=== PATIENT | female | born 1980 | race Caucasian/White ===

== ENCOUNTER 2016-06-29 13:34 | Emergency (ER) | payer OTHER ==
[~2016-06-29] VITALS: Ht 157.5 cm; Wt 60.0 kg
[~2016-06-29 13:34] MED LIST: SERT100 PO; SUBO8MIS SL; VARE.5 PO
[2016-06-29 13:37] VITALS: BP 124/68; PULSE 16; TEMP 98.5; O2SAT 98
[2016-06-29 13:38] VITALS: BP 124/68; PULSE 88; RESP 16; TEMP 98.5; O2SAT 98
--- NOTE | 2016-06-29 13:58 | PD ---
Physical Exam Time Seen by Provider: 13:51 Narrative 36 year old female who states she found out she was two weeks ago presents to the ED for evaluation of intermittent abdominal pains, sharp stabbing, some times lower and sometimes higher. No fever or chills. Urinary frequency. No vaginal discharge or bleeding. Pt has history of bipolar disorder , anxiety, and is on suboxone. Has not yet seen an MANAGER REVENUE. No other symptoms to report. Data Data Last Documented VS Vital Signs Date Time Temp Pulse Resp B/P Pulse Ox O2 Delivery O2 Flow Rate FiO2 06/29/16 13:38 98.5 88 16 124/68 98 MDM Medical Record Reviewed: Yes Supervised Visit with LOIDA: No Narrative Course 36 year old female presents to ED for evaluation of abdominal pains, intermittent and states she found out she was 2 weeks ago. Appears without distress. VSS Condition: Stable Rachael Sanchez Jun 29, 2016 13:58
[2016-06-29] MEDS ORDERED: SUBO8MIS SL (14:23)
--- NOTE | 2016-06-29 14:40 | PD ---
HPI Chief Complaint: Related Problem Time Seen by Provider: 14:24 Travel History International Travel<30 days: No Contact w/Intl Traveler<30days: No Traveled to known affect area: No History of Present Illness HPI This is a 36-year-old female who presents to the emergency department just having found out she was . She says she's been having intermittent abdominal cramping, mild, nonradiating, with no associated vaginal bleeding, vaginal discharge, diarrhea, constipation or vomiting. She does have a history of colitis but doesn't think that is what is going on. She did have an episode of dysuria. PFSH Past Medical History Hx Anticoagulant Therapy: No Bipolar Disorder: Yes Depression: Yes Cardiovascular Problems: No Chemotherapy: No Cerebrovascular Accident: No Diabetes: No Diminished Hearing: No Hepatitis: Yes (c) Psychiatric: Yes Respiratory: No Immunizations Current: Yes Tetanus Vaccination: Unknown Influenza Vaccination: No ?: LMP: 04/14/16 : 4 Para: 2 Miscarriage: 1 Past Surgical History Surgical History: No Previous Surgery Hysterectomy: No Social History Alcohol Use: No Tobacco Use: Yes (1 ppd) Substance Use: Yes (marijuana) Allergies-Medications (Allergen,Severity, Reaction): Coded Allergies: No Known Allergies (Verified , 06/29/16) Reported Meds & Prescriptions Reported Meds & Active Scripts Active Reported Suboxone Sublingual Film (Buprenorphine-Naloxone Sublingual Film) 8-2 Mg Film 1 Film SL Unique ID number required: Review of Systems Except as stated in HPI: all other systems reviewed are Neg Physical Exam Narrative GENERAL:Well appearing, no acute distress SKIN: Focused skin assessment warm and dry. HEAD: Atraumatic. Normocephalic. EYES: Pupils equal and round. No injection or drainage. ENT: Moist mucous membranes NECK: Trachea midline. CARDIOVASCULAR: Regular rate and rhythm. No murmur appreciated. RESPIRATORY: Clear to auscultation. Breath sounds equal bilaterally. GASTROINTESTINAL: Abdomen soft, non-tender, nondistended. MUSCULOSKELETAL: No obvious deformities. NEUROLOGICAL: Awake and alert. No obvious cranial nerve deficits. Moving All extremities. PSYCHIATRIC: Appropriate mood and affect; insight and judgment normal. Data Data Last Documented VS Vital Signs Date Time Temp Pulse Resp B/P Pulse Ox O2 Delivery O2 Flow Rate FiO2 06/29/16 13:38 98.5 88 16 124/68 98 Orders Urinalysis - C+S If Indicated (06/29/16 14:21) Ed Urine Pregnancytest Poc (06/29/16 14:21) Ed Poc Ultrasound (06/29/16 ) Urine Culture (06/29/16 14:26) Labs Laboratory Tests Test 06/29/16 14:26 Urine Color YELLOW Urine Turbidity HAZY Urine pH 6.5 Urine Specific [place] 1.019 Urine Protein NEG mg/dL Urine Glucose (UA) NEG mg/dL Urine Ketones NEG mg/dL Urine Occult Blood NEG Urine Nitrite NEG Urine Bilirubin NEG Urine Urobilinogen LESS THAN 2.0 MG/DL Urine Leukocyte Esterase LARGE Urine RBC 6 /hpf Urine WBC 22 /hpf Urine Squamous Epithelial 6 /hpf Cells Urine Bacteria FEW /hpf Urine Mucus FEW /lpf Microscopic Urinalysis Comment CULTURE INDICATED MDM Medical Decision Making Medical Screen Exam Complete: Yes Emergency Medical Condition: Yes Interpretation(s) Afebrile, no tachycardia, normotensive Differential Diagnosis Ectopic , intrauterine , urinary tract infection, colitis Narrative Course This is a 36-year-old female who presents to the emergency department with lower abdominal discomfort in the setting of early . Bedside ultrasound demonstrates an intrauterine with a heart rate of 142 with movement. I was unable to save the images on ultrasound. Urinalysis demonstrates infection. I think patient can safely be discharged and follow-up with [facility]. I suspect her pain is normal in the setting of early . Diagnosis Primary Impression: Intrauterine Patient Instructions: General Instructions Additional Instructions: If you develop severe abdominal pain, fever, persistent vomiting or inability to eat, heavy vaginal bleeding using more than one pad an hour, lightheadedness , dizziness, chest pain or shortness of breath return to the emergency department immediately. Followup with your program paraprofessional as soon as possible. Take Tylenol as needed for pain. Med/Other Pt SpecificInfo: No Change to Meds Scripts Nitrofurantoin Monohydrate Macrocrystals (Macrobid)100 Mg [id number] Mg PO BID 7 Days Ref 0 Prov:Jemma Vines MD 06/29/16 Disposition: 01 DISCHARGE HOME Condition: Stable Jemma Vines MD Jun 29, 2016 14:40
[2016-06-29 14:46] LABS: BACTERIA, URINE FEW /hpf; BLOOD, URINE NEG (NEG); GLUCOSE,URINE NEG (NEG); KETONE, URINE NEG (NEG); MUCUS URINE FEW /lpf (OCC); NITRITE,URINE NEG (NEG); PH, URINE 6.5 (5.0-8.5); SQUAMOUS EPITHELIAL CELL URINE 6 /hpf (0-5); URINE COLOR YELLOW (YELLW/STRAW)
[2016-06-29 14:47] LABS: COMMENT (UR) CULTURE INDICATED; CULTURE IF INDICATED CULTURE INDICATED
[2016-06-29] MEDS ORDERED: MACR100C2 PO (15:00)
[2016-07-28] MEDS ORDERED: ZOLO50TA PO (13:56)
[2016-08-31] MEDS ORDERED: ZOLO50TA PO (13:54)
== END 2016-06-29 15:45 | disposition home or self-care (01) ==
LOC: NEPD 13:34
DX: O26.891 Other specified pregnancy related conditions, first trimester (principal); R30.0 Dysuria; O09.521 Supervision of elderly multigravida, first trimester; Z3A.00 Weeks of gestation of pregnancy not specified
CPT/HCPCS: 81001; 84703; 87086; 99284

== ENCOUNTER → 2016-09-07 | Emergency (ER) | payer OTHER ==
[~2016-09-07] MED LIST changes: -SERT100 PO; -VARE.5 PO; +ZOLO50TA PO
[2016-09-07 13:46] VITALS: BP 117/61; PULSE 76; RESP 12; RESP 16
--- NOTE | 2016-09-07 13:46 | PD ---
HPI Chief Complaint swelling of the legs Date Seen: Sep 07, 2016 Time Seen: 13:46 Travel History International Travel<30 Days: No Contact w/Intl Traveler<30Days: No History of Present Illness HPI Patient is a 36 year old at 20 and 5/7 weeks gestation, TRINA 01/20/2017, who presents to the OB ED with swelling of the legs, arms and face intermittently x 1 month. She has a history of bipolar disorder, hepatitis C diagnosed in 2007, and colitis (resolved 2 years ago). She endorses chronic migraines. She notes she has taken ibuprofen during this but not in the last month. She denies leakage of fluid, vaginal bleeding, and contractions. She feels baby moving regularly. She denies PALACIOS/N/V/D/fever/sick contacts/SOB/calf pain/ dizziness/seeing spots. OB care is with Dr. Land ([facility]). History Past Medical History Narrative Medical Hepatitis C diagnosed 2007 Colitis 2 years ago Bipolar disorder Obstetric History Obstetric History 2 normal spontaneous vaginal deliveries of 8+ pounds boy and girl age 11 and 14 One spontaneous One elective Family History Family History: Negative Social History Alcohol Use: No Tobacco Use: Yes (1 pack per day) Substance Abuse: Yes (Suboxone 16/4 mg daily) Allergies-Medications (Allergen,Severity, Reaction): Coded Allergies: No Known Allergies (Verified , 08/31/16) Home Meds Active Scripts Sertraline (Zoloft)50 Mg Tab50 Mg PO DAILY #90 TAB Ref 0 Prov:Chava Land MD 08/31/16 Reported Medications Buprenorphine-Naloxone Sublingual Film (Suboxone Sublingual Film)8-2 Mg Film1 Film SL Unique ID number required: 06/29/16 Discontinued Scripts Sertraline (Zoloft)50 Mg Tab50 Mg PO DAILY #90 TAB Ref 0 Prov:Chava Land MD 07/28/16 Review of Systems Except as stated in HPI: all other systems reviewed are Neg Physical Exam Narrative GENERAL: Well-nourished, well-developed female patient who appears anxious. SKIN: Warm and dry. [facility] HEAD: Normocephalic and atraumatic. EYES: No scleral icterus. No injection or drainage. ENT: No nasal drainage noted. Mucous membranes pink. Airway patent. NECK: Supple, trachea midline. No JVD. CARDIOVASCULAR: Regular rate and rhythm without murmurs, gallops, or rubs. RESPIRATORY: Breath sounds equal bilaterally. No accessory muscle use. BREASTS: Bilateral exam showed no masses , no retractions, no nipple discharge. ABDOMEN/GI: Abdomen soft, non-tender, bowel sounds present, no rebound, no guarding . She is gravid to approximately 19 weeks size GENITOURINARY: Deferred FHR: 135 EXTREMITIES: No cyanosis or edema. No lower extremity edema noted on exam. 2+ pulses in the extremities bilaterally. She has no calf tenderness and negative Homans sign BACK: Nontender without obvious deformity. No CVA tenderness. NEUROLOGICAL: Awake and alert. Motor and sensory grossly within normal limits. Five out of 5 muscle strength in all muscle groups. Normal speech. Data Data Vital Signs Reviewed: Yes (BP 114/71, pulse 94, repeat BP 117/51, pulse 76, respirations 16/m, temp 98.3F) Orders Vital Signs (Adult) .ON ADMISSION (09/07/16 13:44) ^ Labor Status (09/07/16 13:44) ^ Hydration (09/07/16 13:44) MDM Medical Record Reviewed: Yes Narrative Course / MDM 36 year old at 20 and 5/7 weeks gestation, TRINA 01/20/2017, with a history of bipolar disorder, hepatitis C, and colitis, who presents to the OB ED with swelling of the legs, arms, and face which has resolved. Intrauterine : Normal FHR for week gestation No contractions on monitor Care for women care Routine care Given handouts on healthy diet given salt intake likely contributing to reported edema MFM consult the given history of drug use. Patient counseled her most recent appointment. She was walked to OB diagnostics for rescheduling Suboxone Use Complicating Reports over 4 years of use MFM consulted per [facility] Tobacco Use Complicating Counseled on tobacco cessation Chronic Hepatitis C Noted, patient to be monitored closely. No symptoms at this time Diagnosis Diagnosis: Primary Impression: Intrauterine normal Additional Impressions: Suboxone maintenance treatment complicating , antepartum Chronic hepatitis C during , antepartum Disposition: 01 DISCHARGE HOME Condition: Stable Carolina Cintron MD R1 Sep 07, 2016 13:46 Patient would like to have vaginal after . Nothing by mouth She had a consult for this on 10/05; risks and benefits were discussed and are in the EMR Epidural available No Pitocin Patient was informed that if the strip is not reassuring, or if she develops symptoms suggesting severe preeclampsia, or other unforeseen difficulties, it may be necessary to proceed with a delivery Patient understands and agrees. All questions were answered. BILLIE Sanches [] Date Seen: Sep 07, 2016 Time Seen: 13:46 Travel History International Travel<30 Days: No Contact w/Intl Traveler<30Days: No Allergies-Medications (Allergen,Severity, Reaction): Coded Allergies: No Known Allergies (Verified , 08/31/16) Home Meds Active Scripts Sertraline (Zoloft)50 Mg Tab50 Mg PO DAILY #90 TAB Ref 0 Prov:Chava Land MD 08/31/16 Reported Medications Buprenorphine-Naloxone Sublingual Film (Suboxone Sublingual Film)8-2 Mg Film1 Film SL Unique ID number required: 06/29/16 Discontinued Scripts Sertraline (Zoloft)50 Mg Tab50 Mg PO DAILY #90 TAB Ref 0 Prov:Chava Land MD 07/28/16 Physical Exam Narrative GENERAL: Well-nourished, well-developed patient. SKIN: Warm and dry. HEAD: Normocephalic and atraumatic. EYES: No scleral icterus. No injection or drainage. ENT: No nasal drainage noted. Mucous membranes pink. Airway patent. NECK: Supple, trachea midline. No JVD. CARDIOVASCULAR: Regular rate and rhythm without murmurs, gallops, or rubs. RESPIRATORY: Breath sounds equal bilaterally. No accessory muscle use. BREASTS: Bilateral exam showed no masses , no retractions, no nipple discharge. ABDOMEN/GI: Abdomen soft, non-tender, bowel sounds present, no rebound, no guarding Gravid to [-] weeks size Fundal Height: [-] GENITOURINARY: External Genitalia: intact and normal in appearance BUS glands: [-] Cervix: [-] Dilatation: [-] Effacement: [-] Station: [-] Presentation: [-] Membranes: [intact or ruptured] Uterine Contractions: [-] FHT's: Category: [-] Baseline: [-] Reactive: [-] Variability: [-] Decels: [-] EXTREMITIES: No cyanosis or edema. BACK: Nontender without obvious deformity. No CVA tenderness. NEUROLOGICAL: Awake and alert. Motor and sensory grossly within normal limits. Five out of 5 muscle strength in all muscle groups. Normal speech. Data Data Orders Vital Signs (Adult) .ON ADMISSION (09/07/16 13:44) ^ Labor Status (09/07/16 13:44) ^ Hydration (09/07/16 13:44) Carolina Cintron MD R1 Sep 07, 2016 13:46
[2016-09-07 14:13] LABS: BACTERIA, URINE OCC /hpf; BLOOD, URINE NEG (NEG); COMMENT (UR) CULT NOT INDICATED; CULTURE IF INDICATED CULT NOT INDICATED; GLUCOSE,URINE NEG (NEG); KETONE, URINE NEG (NEG); NITRITE,URINE NEG (NEG); PH, URINE 7.5 (5.0-8.5); SQUAMOUS EPITHELIAL CELL URINE 2 /hpf (0-5); URINE COLOR YELLOW (YELLW/STRAW)
== END | disposition home or self-care (01) ==
LOC: HOBED 12:35
DX: O26.892 Other specified pregnancy related conditions, second trimester (principal); O99.322 Drug use complicating pregnancy, second trimester; O99.332 Smoking (tobacco) complicating pregnancy, second trimester; O99.830 Other infection carrier state complicating pregnancy; O99.342 Other mental disorders complicating pregnancy, second trimester; Z3A.20 20 weeks gestation of pregnancy
CPT/HCPCS: 81001; 99281

== ENCOUNTER 2016-12-29 14:31 | Inpatient (IN) | payer OTHER ==
[2016-12-29] VITALS (12 sets, daily range): BP systolic 101–126; BP diastolic 51–84; PULSE 75–86; RESP 12–22; TEMP 97.7–98.3; O2SAT 97–100
[~2016-12-29] VITALS: Ht 157.5 cm; Wt 69.4 kg
[~2016-12-29 14:31] MED LIST changes: +CALC1CHW35 CHEW; +LACTATED RINGER'S 1000 ML INJ 1,000 ML IV ONE; +ONDANSETRON HCL 4 MG/2 ML VIAL IV PUSH ONE; +OXYTOCIN 10 UNIT/ML AMP IV ONE; +PHENYLEPH/NS 1000 MCG/10 ML SYR IV ONE; +PREN1CAP7 PO; +PREN1TAB63; +PROPOFOL 200 MG/20 ML AMP IV ONE; +SODIUM CHLORIDE 0.9% 20 ML VIAL IV ONE; +SUCCINYLCHOLINE CHLORIDE 100 MG/5 ML SYRINGE IV PUSH ONE; +ceFAZolin INJ 1,000 MG VIAL IV ONE
--- NOTE | 2016-12-29 16:03 | PD ---
HPI Chief Complaint Contractions Date Seen: Dec 29, 2016 Time Seen: 15:30 Travel History International Travel<30 Days: No Contact w/Intl Traveler<30Days: No History of Present Illness HPI 36-year-old at 36/6 weeks gestation presenting for contractions. Started at 8 AM as a constant pressure, high in intensity, localized to the lower pelvis and back. Pain is been constant, not intermittent. Twice she had sharp flares of the pain, once at 12:30 and again at 1345. She denies vaginal bleeding , leakage of fluid. Endorses movement. Denies chest pain, shortness of breath, dysuria. History Past Medical History Medical History: Denies Significant Hx Obstetric History Obstetric History Past Surgical History Surgical History: No Previous Surgery Family History Family History: Negative Social History Alcohol Use: No Tobacco Use: Yes (1 PPD throughout ) Substance Abuse: Yes (h/o opiate use, currently on suboxone) Allergies-Medications (Allergen,Severity, Reaction): Coded Allergies: No Known Allergies (Verified , 12/23/16) Home Meds Active Scripts W/O Vit A W/ Fe Fumar (Citranatal [place]) 27-1-260 Mg Cap, 1 CAP PO DAILY for Nutritional Supplement, #30 CAP 3 Refills Prov:Chava Land MD 12/23/16 Sertraline (Zoloft) 50 Mg Tab, 50 MG PO DAILY for Depression Control, #90 TAB 0 Refills Prov:Chava Land MD 08/31/16 Reported Medications Calcium Carbonate-Mag Hydroxide (Rolaids) 550-110 Mg Chew, 2 TAB CHEW QID Y for HEARTBURN, TAB 0 Refills 11/09/16 Multivit-Min W/Fe-FA ( Vitamins 0.8 mg) 1 Tab Tab 10/12/16 Buprenorphine-Naloxone Sublingual Film (Suboxone Sublingual Film) 8-2 Mg Film, 1 FILM SL, FILM Unique ID number required: 06/29/16 Review of Systems Except as stated in HPI: all other systems reviewed are Neg Physical Exam Narrative GENERAL: Well-nourished, well-developed patient. SKIN: Warm and dry. HEAD: Normocephalic and atraumatic. EYES: No scleral icterus. No injection or drainage. ENT: No nasal drainage noted. Mucous membranes pink. Airway patent. CARDIOVASCULAR: Regular rate and rhythm without murmurs, gallops, or rubs. RESPIRATORY: Breath sounds equal bilaterally. No accessory muscle use. ABDOMEN/GI: Abdomen soft, non-tender, no rebound, no guarding GENITOURINARY: Cervix: posterior Dilation: 1 cm Effacement: 70% Presentation: Vertex Membranes: Intact Contractions: Every 1 min FHT's: Category: 1 Baseline: 130 Reactive: Y Variability: moderate Decels: N EXTREMITIES: No cyanosis or edema. NEUROLOGICAL: Awake and alert. Motor and sensory grossly within normal limits. Normal speech. Data Data Vital Signs Reviewed: Yes Group B Strep: Negative MDM Medical Record Reviewed: Yes Narrative Course / MDM 36-year-old at 36/6 weeks gestation presenting with contractions #1 IUP Category 1 tracing, reassuring #2 contractions Cervix effaced, but not dilated. However, patient extremely uncomfortable Encouraged hydration Pain subsiding spontaneously. Give Demerol 50 mg IM x1, Phenergan 25 mg IM x1 Since she's feeling better, patient elected to go home after demerol/phenergan and wait to see if contractions become true labor. Counselled on labor signs and when to come into ER. #3 Tobacco use Advised smoking cessation #4 H/o opiate use on suboxone no record found of UDS this UDS ordered dw Dr. Powers Diagnosis Diagnosis: Primary Impression: Uterine contractions during Disposition: 01 DISCHARGE HOME Condition: Good Altaf Chapman MD R2 Dec 29, 2016 16:03
[2016-12-29] MEDS ORDERED: PROMETHAZINE INJ 25 MG/ML VIAL IM ONE (17:00)
[2016-12-29] MEDS ORDERED: MEPERIDINE HCL 50 MG/ML VIAL IM ONE (17:00)
--- NOTE | 2016-12-29 17:51 | PD.LABORPN ---
Subjective Subjective Patient is 36-year-old white female at 37 weeks tomorrow presents with pain and frequent contractions, heart rate tracing is reactive and she is chad every minute with very little rest between uterus staying firm, she denies bleeding or leakage of fluid. Plan to discharge the patient because her cervix is 1 cm and 70% however before she was discharged her urine drug screen came back positive for cocaine. And because the cocaine screen was positive for felt the risk for placental abruption significant the contraction pattern I' m seeing now with heart rate tracing is reactive and there is no bleeding after assessment and discussion with the patient and we were frankly discussing cocaine and its ability to possible small abruption and the Baby that we should at least watch her overnight and see if she's going to progress into labor or show signs of abruption. We'll check a CBC CMP PT/PTT if fibrinogen observe the patient as described Objective Vital Signs Vital Signs Date Time Temp Pulse Resp B/P (MAP) Pulse Ox O2 Delivery O2 Flow Rate FiO2 12/29/16 17:33 18 12/29/16 17:32 81 119/84 (96) Objective Pelvic Exam: Cervix: [-] Dilatation: [-] Effacement: [-] Station: [-] Presentation: [-] Membranes: [intact or ruptured] Uterine Contractions: [-] FHT's: Category: [-] Baseline: [-] Reactive: [-] Variability: [-] Decels: [-] Weeks Gestation: 37 Gest Age Assessed Date: Dec 30, 2016 Gest Age Assessed Time: 14:31 Pt started active labor?: No Medical induction of labor?: No Artificial rupture of membrane: No Assessment/Plan Assessment and Plan 36-37 weeks with threatened labor with contractions every minute after having a positive cocaine screen today. Plan to admit for observation for threatened labor drug use and possible increased risk for placental abruption due to cocaine use Tony Powers II, MD Dec 29, 2016 17:51
--- NOTE | 2016-12-29 17:59 | HHI.HP ---
History & Physical H&P Patient Name: Arlyn Yu Unit Number: [id number] Date of : 1980 Patient Status: Registered Emergency Room Attending Doctor: Tony Powers II, MD HPI HPI Chief Complaint Contractions Date Seen: Dec 29, 2016 Time Seen: 15:30 Travel History International Travel<30 Days: No Contact w/Intl Traveler<30Days: No History of Present Illness HPI 36-year-old at 36/6 weeks gestation presenting for contractions. Started at 8 AM as a constant pressure, high in intensity, localized to the lower pelvis and back. Pain is been constant, not intermittent. Twice she had sharp flares of the pain, once at 12:30 and again at 1345. She denies vaginal bleeding , leakage of fluid. Endorses movement. Denies chest pain, shortness of breath, dysuria. History (Limited) History Past Medical History Medical History: Denies Significant Hx Obstetric History Obstetric History Past Surgical History Surgical History: No Previous Surgery Family History Family History: Negative Social History Alcohol Use: No Tobacco Use: Yes (1 PPD throughout ) Substance Abuse: Yes (h/o opiate use, currently on suboxone) Allergies-Medications Allergies-Medications (Allergen,Severity, Reaction): Coded Allergies: No Known Allergies (Verified , 12/23/16) Home Meds Active Scripts W/O Vit A W/ Fe Fumar (Citranatal [place]) 27-1-260 Mg Cap, 1 CAP PO DAILY for Nutritional Supplement, #30 CAP 3 Refills Prov:Chava Land MD 12/23/16 Sertraline (Zoloft) 50 Mg Tab, 50 MG PO DAILY for Depression Control, #90 TAB 0 Refills Prov:Chava Land MD 08/31/16 Reported Medications Calcium Carbonate-Mag Hydroxide (Rolaids) 550-110 Mg Chew, 2 TAB CHEW QID Y for HEARTBURN, TAB 0 Refills 11/09/16 Multivit-Min W/Fe-FA ( Vitamins 0.8 mg) 1 Tab Tab 10/12/16 Buprenorphine-Naloxone Sublingual Film (Suboxone Sublingual Film) 8-2 Mg Film, 1 FILM SL, FILM Unique ID number required: 06/29/16 ROS Review of Systems Except as stated in HPI: all other systems reviewed are Neg Physical Exam Physical Exam Narrative GENERAL: Well-nourished, well-developed patient. SKIN: Warm and dry. HEAD: Normocephalic and atraumatic. EYES: No scleral icterus. No injection or drainage. ENT: No nasal drainage noted. Mucous membranes pink. Airway patent. CARDIOVASCULAR: Regular rate and rhythm without murmurs, gallops, or rubs. RESPIRATORY: Breath sounds equal bilaterally. No accessory muscle use. ABDOMEN/GI: Abdomen soft, non-tender, no rebound, no guarding GENITOURINARY: Cervix: posterior Dilation: 1 cm Effacement: 70% Presentation: Vertex Membranes: Intact Contractions: Every 1 min FHT's: Category: 1 Baseline: 130 Reactive: Y Variability: moderate Decels: N EXTREMITIES: No cyanosis or edema. NEUROLOGICAL: Awake and alert. Motor and sensory grossly within normal limits. Normal speech. Data Data Data Vital Signs Reviewed: Yes Group B Strep: Negative MDM MDM Medical Record Reviewed: Yes Narrative Course / MDM 36-year-old at 36/6 weeks gestation presenting with contractions #1 IUP Category 1 tracing, reassuring #2 contractions Cervix effaced, but not dilated. However, patient extremely uncomfortable Encouraged hydration Pain subsiding spontaneously. Give Demerol 50 mg IM x1, Phenergan 25 mg IM x1 Since she's feeling better, patient elected to go home after demerol/phenergan and wait to see if contractions become true labor. Counselled on labor signs and when to come into ER. #3 Tobacco use Advised smoking cessation #4 H/o opiate use on suboxone no record found of UDS this UDS ordered dw Dr. Powers Diagnosis Diagnosis: Primary Impression: Uterine contractions during , Drug use , cocaine screen positive Disposition: Admit for observation Condition: Altaf Dacosta MD R2 Dec 29, 2016 16:03 Tony Powers II, MD Dec 29, 2016 17:59
[2016-12-29] MEDS ORDERED: ONDANSETRON HCL 4 MG/2 ML VIAL IV PUSH PRN ×2 (18:00→22:45)
[2016-12-29] MEDS ORDERED: SODIUM CHLORIDE 0.9% FLUSH 10 ML FLUSH IV FLUSH PRN ×2 (18:00→22:45)
[2016-12-29] MEDS ORDERED: ZOLPIDEM TARTRATE 5 MG TAB PO PRN ×2 (18:00→22:45)
[2016-12-29] MEDS ORDERED: ACETAMINOPHEN 325 MG TAB PO PRN ×2 (18:00→22:45)
[2016-12-29 20:04] LABS: AUTOMATED NEUTROPHIL # 13.4 TH/MM3 (1.8-7.7); BASOPHIL % 0.1 % (0.0-2.0); EOSINOPHIL # 0.1 TH/MM3 (0-0.4); EOSINOPHIL % 0.3 % (0.0-4.0); HEMATOCRIT 33.2 % (35.0-46.0); HEMO FLAGS DIFF FINAL; LYMPH % 14.8 % (9.0-44.0); LYMPHOCYTE # 2.5 TH/MM3 (1.0-4.8); MEAN CELL VOLUME 92.6 FL (80.0-100.0); MEAN CORPUSCULAR HEMOGLOBIN 31.9 PG (27.0-34.0); MEAN CORPUSCULAR HGB CONC 34.5 % (32.0-36.0); MONO % 5.3 % (0.0-8.0); NEUT % 79.5 % (16.0-70.0); PLATELET COUNT 296 TH/MM3 (150-450); RED BLOOD COUNT 3.59 MIL/MM3 (4.00-5.30); RED CELL DISTRIBUTION WIDTH 12.9 % (11.6-17.2); WHITE BLOOD COUNT 16.9 TH/MM3 (4.0-11.0)
[2016-12-29] MEDS ORDERED: NICOTINE 14 MG/24 HR PATCH T-DERMAL SCH (20:06)
[2016-12-29 20:07] LABS: ANION GAP 7 MEQ/L (5-15); BICARBONATE 24.2 MEQ/L (21.0-32.0); BLOOD UREA NITROGEN 7 MG/DL (7-18); CHLORIDE 105 MEQ/L (98-107); GLOMERULAR FILTRATION RATE 210 ML/MIN (>89); SODIUM (NA) 136 MEQ/L (136-145)
[2016-12-29 20:09] LABS: ALT (GPT) 29 U/L (10-53); AST (GOT) 34 U/L (15-37)
[2016-12-29 20:10] LABS: ALKALINE PHOSPHATASE 202 U/L (45-117); TOTAL BILIRUBIN ADULT 0.3 MG/DL (0.2-1.0)
[2016-12-29] MEDS: NALOXONE SL SCH (21:00)
[2016-12-29] MEDS: BUPRENORPHINE SL SCH (21:00)
[2016-12-29] MEDS: SODIUM CHLORIDE 0.9% FLUSH 10 ML FLUSH IV FLUSH SCH (21:00)
[2016-12-29 21:25] LABS: APTT (PATIENT) 30.2 SEC (24.3-30.1); INTERNATIONAL NORMALIZED RATIO 0.9 RATIO; PROTHROMBIN TIME - PATIENT 10.3 SEC (9.8-11.6)
--- NOTE | 2016-12-29 22:38 | RADRPT ---
EXAM DATE/TIME: 12/29/2016 23:05 [facility] COMPARISON: No previous studies available for comparison. INDICATIONS : Evaluate for foreign body. Emergency section. No instrument count. MEDICAL HISTORY : Unobtainable. SURGICAL HISTORY : Unobtainable. ENCOUNTER: Initial ACUITY: 1 day PAIN SCORE: Non-responsive. LOCATION: Abdomen. FINDINGS: Supine view of the abdomen was performed. The abdominal bowel gas pattern is normal. No abnormal ma sses, calcifications, or organomegaly is seen. The osseous structures are unremarkable. CONCLUSION: Scan negative for radiopaque foreign body or instrument. Jonathan Marinelli MD on December 29, 2016 at 22:36 Board Certified Radiologist. This report was verified electronically.
[2016-12-29] MEDS ORDERED: MORPHINE SULFATE 30 MG/30 ML PCA ONE (22:43)
[2016-12-29] MEDS ORDERED: NALOXONE HCL 0.4 MG/ML AMP IV PUSH PRN (22:45)
[2016-12-29] MEDS ORDERED: OXYTOCIN 30 UNITS-500ML PREMIX 500 ML IV ONE (22:45)
[2016-12-29] MEDS ORDERED: diphenhydrAMINE HCL 50 MG/ML VIAL IV PUSH PRN (22:45)
[2016-12-29] MEDS ORDERED: SIMETHICONE 80 MG CHEWABLE TAB PO PRN (22:45)
[2016-12-29] MEDS ORDERED: KETOROLAC TROMETHAMINE 60 MG/2 ML (IM) VIAL IM PRN (22:45)
[2016-12-29] MEDS: MORPHINE SULFATE 30 MG/30 ML PCA IV SCH (22:47)
--- NOTE | 2016-12-29 22:47 | PD.OB.DELI ---
Weeks gestation: 36 Gest age assessed date: Dec 29, 2016 Gest age assessed time: 14:31 Pt started active labor?: No Medical induction of labor?: No Artificial rupture of membrane: No Anesthesia: Other Episiotomy: None Presentation: Vertex Nuchal Cord: None Delayed cord clamping (45 sec): No Infant: Female, Single Delivery date: Dec 29, 2016 Delivery time: 21:40 One Minute : 8 Five Minute : 9 Weight: 3270 gm Placenta: Manual removal Laceration: No lacerations Estimated blood loss: 750 cc Additional Information stat C section for abruption related to cocaine use Tony Powers II, MD Dec 29, 2016 22:47
[2016-12-29 23:34] LABS: BLOOD GAS BASE EXCESS 1.4 mmol/L (-2-2); BLOOD GAS O2 HGB SATURATION 45 % (90-100); CORD BLOOD GAS HCO3 28 mmol/L (21-29); CORD BLOOD GAS PCO2 62 mmHG (34-78); CORD BLOOD GAS PH 7.27 (7.14-7.42); CORD BLOOD GAS PO2 23 mmHG (3.0-40.0); DRAW SITE CORD BLOOD; STAT YES
--- NOTE | 2016-12-29 23:41 | MP ---
cc: CELIO POWERS MD DATE OF SURGERY: 12/29/2016 PREOPERATIVE DIAGNOSIS: 36 to 37 week intrauterine with cocaine usage and third trimester bleeding. POSTOPERATIVE DIAGNOSIS: Placental abruption related to cocaine use at 36 to 37 weeks. PROCEDURE PERFORMED Stat low transverse section. SURGEON Rhonda Powers MD. ANESTHESIA General. PRE-OP NOTE The patient is a 36 year-old white female, G5, P2, at 36 weeks, 6 days who presented with contractions every minute, after having used cocaine earlier in the day. Her cocaine screen was positive in the urine. heart rate tracing was within normal limits. She was admitted because she was chad every minute and with her history of cocaine use we were suspicious for abruption. She was here on the Labor and Delivery floor for approximately seven hours when she began to have bleeding vaginally, rather profusely and was taken to surgery for emergency section. PROCEDURE The patient was taken to the operating room and placed in supine position on the operating table. After adequate preparation, she was prepped and draped for sterile procedure and had a rapid sequence induction of general anesthetic. A Pfannenstiel incision was made in the lower abdomen and carried through to the fascia sharply, the fascia dissected off the rectus muscle. The rectus split in the midline. The peritoneal cavity was entered sharply. A bladder blade was placed in the lower edge of the incision. The vesicouterine peritoneum was then reflected off the lower uterine segment and placed on the bladder blade. A transverse hysterotomy was made and extended bluntly bilaterally. A female was delivered at 9:40 p.m. with clear amniotic fluid noted at the time. Weight 3270 grams. Apgars 8 and 9. Cord blood obtained. Cord pH obtained which is pending at the time of dictation. The placenta easily came right out of the uterine incision and there was approximately a fist size blood clot attached to the periphery of the placenta consistent with approximately 20% abruption. Photographs taken of that placenta. The placenta sent to pathology. The uterus was exteriorized. The hysterotomy closed with a running layer of 0 chromic followed by imbricating suture of same. Hemostasis was achieved with a couple of stick ties. The uterus elevated and blood suctioned from the cul-de-sac and gutters. The uterus replaced in the peritoneal cavity. The parietal peritoneum closed with a running layer of 2-0 Vicryl. The rectus muscle reapproximated with stick ties of chromic. The fascia closed with a running layer of 0 Vicryl. Skin closed with Monocryl subcuticular stitch. Pressure dressing applied. ESTIMATED BLOOD LOSS: 750 cc. No complications other than the emergency section for abruption. There was no count of sponges, so an x-ray was shot and was negative for retained sponge. The patient was taken to Recovery in stable condition and the baby doing well in the nursery. MD JOANNA Sumner/CELINE /10:49 PM /10:58 PM
[2016-12-29] MEDS ORDERED: ceFAZolin INJ 1,000 MG VIAL ONE (23:42)
[2016-12-29] MEDS ORDERED: KETOROLAC TROMETHAMINE 60 MG/2 ML (IM) VIAL IM ONE (23:43)
[2016-12-30] VITALS: BP 102/59; PULSE 77; RESP 18; O2SAT 98
[2016-12-30 00:11] VITALS: PULSE 80; RESP 22; TEMP 98.1; O2SAT 99
[2016-12-30 00:12] VITALS: BP 113/57
[2016-12-30] MEDS ORDERED: OXYTOCIN 30 UNITS-500ML PREMIX 500 ML ONE (00:41)
[2016-12-30] MEDS: MORPHINE SULFATE 30 MG/30 ML PCA IV SCH (01:41)
[2016-12-30 01:47] VITALS: BP 111/79; PULSE 89; RESP 18; TEMP 97.6
[2016-12-30] MEDS ORDERED: LACTATED RINGER'S 1000 ML INJ 1,000 ML IV SCH (03:32)
[2016-12-30 05:50] VITALS: BP 120/69; PULSE 96; RESP 20; TEMP 98.8
[2016-12-30 05:50] LABS: AUTOMATED NEUTROPHIL # 13.1 TH/MM3 (1.8-7.7); BASOPHIL % 0.1 % (0.0-2.0); EOSINOPHIL % 0.1 % (0.0-4.0); HEMATOCRIT 22.7 % (35.0-46.0); HEMO FLAGS DIFF FINAL; LYMPH % 13.5 % (9.0-44.0); LYMPHOCYTE # 2.2 TH/MM3 (1.0-4.8); MEAN CELL VOLUME 93.4 FL (80.0-100.0); MEAN CORPUSCULAR HEMOGLOBIN 32.4 PG (27.0-34.0); MEAN CORPUSCULAR HGB CONC 34.7 % (32.0-36.0); MONO % 6.6 % (0.0-8.0); NEUT % 79.7 % (16.0-70.0); PLATELET COUNT 215 TH/MM3 (150-450); RED BLOOD COUNT 2.43 MIL/MM3 (4.00-5.30); RED CELL DISTRIBUTION WIDTH 12.8 % (11.6-17.2); WHITE BLOOD COUNT 16.4 TH/MM3 (4.0-11.0)
[2016-12-30] MEDS ORDERED: PCA - TOTAL MG MORPHINE DELIVERED PER SHIFT SCH (06:00)
--- NOTE | 2016-12-30 07:14 | HHI.OB ---
Subjective Remarks 36 year old female s/p emergent C/S due to palcental abruption caused by cocaine use. 36/6 wks gestation, POD1. AFVSS. Patient reports she is feeling well. Bleeding is decreasing and pain is well-controlled. She is formula feeding. Baby not present in room. Ambulating without difficulties. She is tolerating a diet without nausea or vomiting. She has not had a bowel movement. She has not passed gas. Denies chest pain, dysuria, shortness of breath, or calf pain. Objective Vitals/I&O Vital Signs Date Time Temp Pulse Resp B/P (MAP) Pulse Ox O2 Delivery O2 Flow Rate FiO2 12/30/16 06:00 18 12/30/16 05:50 98.8 96 20 120/69 (86) 12/30/16 01:47 97.6 89 18 111/79 (90) 12/30/16 01:46 18 12/30/16 01:41 18 12/30/16 00:12 113/57 (75) 12/30/16 00:11 22 12/30/16 00:11 98.1 80 99 12/30/16 00:00 77 18 102/59 (73) 98 12/29/16 23:45 79 22 103/58 (73) 100 12/29/16 23:45 98.3 12/29/16 23:30 17 100 12/29/16 23:29 101/75 (84) 12/29/16 23:29 75 12/29/16 23:15 100 12/29/16 23:15 101/58 (72) 12/29/16 22:47 24 12/29/16 22:33 97 12/29/16 22:32 97.7 78 101/51 (68) 12/29/16 22:32 12 12/29/16 21:33 18 12/29/16 21:00 18 12/29/16 20:14 79 114/52 (72) 12/29/16 19:15 18 12/29/16 18:15 86 126/74 (91) 12/29/16 17:33 18 12/29/16 17:32 81 119/84 (96) Result Diagram: 12/30/16 4011 12/29/16 9974 Objective Remarks GENERAL: Well-nourished, well-developed patient. CARDIOVASCULAR: Regular rate and rhythm without murmurs, gallops, or rubs. RESPIRATORY: Breath sounds equal bilaterally. No accessory muscle use. ABDOMEN/GI: Abdomen soft, non-tender, bowel sounds present. Incision: covered in pressure dressing, will check POD 2 Fundus: Firm, non-tender at umbilicus. GENITOURINARY: Light to moderate bleeding. EXTREMITIES: No cyanosis or edema, non-tender, without signs of DVT. Medications and IVs Current Medications Medications (Trade) Dose Ordered Sig/Maximus Route Start Time Stop Time Status Last Admin (NS Flush) 2 ml BID IV FLUSH 12/29/16 21:00 12/29/16 21:00 (NS Flush) 2 ml UNSCH PRN IV FLUSH 12/29/16 18:00 (Zofran Inj) 4 mg Q6H PRN IV PUSH 12/29/16 18:00 (fentaNYL INJ) 25 mcg Q3HR PRN IV PUSH 12/29/16 18:00 12/29/16 20:33 (Habitrol 14 Mg Patch.24 Hr) 1 patch DAILY T-DERMAL 12/29/16 20:06 12/29/16 20:29 Miscellaneous Information 1 DAILY T-DERMAL 12/30/16 09:00 Patient Own Medication PT OWN MED: SUBOX... BID SL 12/29/16 21:00 12/29/16 21:00 Lactated Ringer's 1,000 ml @ 100 mls/hr Q10H IV 12/30/16 03:32 12/30/16 23:31 12/30/16 06:12 Oxytocin 500 ml @ 100 mls/hr UNSCH X1 PRN IV 12/30/16 08:45 12/31/16 08:44 (NS Flush) 2 ml UNSCH PRN IV FLUSH 12/29/16 22:45 (Mylicon Chew) 80 mg QID PRN PO 12/29/16 22:45 (Tylenol) 650 mg Q6H PRN PO 12/29/16 22:45 (Motrin) 600 mg Q6H PRN PO 12/29/16 22:45 (Toradol Inj) 60 mg UNSCH X1 PRN IM 12/29/16 22:45 12/30/16 22:44 12/29/16 23:46 (Percocet 5-325 Mg) 1 tab Q4H PRN PO 12/29/16 22:45 (Percocet 5-325 Mg) 2 tab Q4H PRN PO 12/29/16 22:45 Cefazolin Sodium 1000 mg/Sodium Chloride 100 ml @ 200 mls/hr Q8H IV 12/29/16 23:00 12/30/16 07:29 12/30/16 06:53 (Ting-Colace) 2 tab Q12H PRN PO 12/29/16 22:45 (Ambien) 5 mg HS PRN PO 12/29/16 22:45 (M-M-R Ii Inj) 0.5 ml ONCE ONCE SQ 12/30/16 16:00 12/30/16 16:01 (Boostrix Inj) 0.5 ml ONCE ONCE IM 12/30/16 16:00 12/30/16 16:01 12/30/16 06:14 (Zofran Inj) 4 mg Q6H PRN IV PUSH 12/29/16 22:45 (Narcan Inj) 0.4 mg UNSCH PRN IV PUSH 12/29/16 22:45 (Benadryl Inj) 25 mg Q6H PRN IV PUSH 12/29/16 22:45 (Morphine 1 Mg/ ml [employer]) 30 mg UNSCH IV 12/29/16 22:45 12/30/16 01:41 [employer] Dosage Infused (Pha) 1 Q8HR .XX 12/30/16 06:00 12/30/16 06:00 (Flu (Quadrivalent) Vaccine Inj) 0.5 ml ONCE ONCE IM 12/31/16 10:00 12/31/16 10:01 Assessment/Plan Assessment and Plan 36 yo female s/p emergent C/S due to placental abruption due to cocaine use , POD1 - AFVSS - Continue routine care - Patient currently on [employer] pump, will transition to percocet and Toradol for pain - Encourage OOB - Pelvic rest x 6 wks. Will need 1 week incision check. - Contraception: Undecided - Anticipate D/C on Tuesday Tila Rodriguez MD R1 Dec 30, 2016 07:14
[2016-12-30] MEDS ORDERED: OXYTOCIN 30 UNITS-500ML PREMIX 500 ML IV PRN (08:45)
[2016-12-30] MEDS ORDERED: REMOVE OLD NICOTINE PATCH T-DERMAL SCH (09:00)
[2016-12-30] MEDS ORDERED: SODIUM CHLORIDE 0.9% FLUSH 10 ML FLUSH IV FLUSH SCH (09:00)
[2016-12-30] MEDS: NALOXONE SL SCH ×2 (09:00→20:48)
[2016-12-30] MEDS: BUPRENORPHINE SL SCH ×2 (09:00→20:48)
[2016-12-30] MEDS: oxyCODONE/ACETAMINOPHEN 5 MG/325 MG TAB PO PRN ×4 (10:51→23:49)
[2016-12-30] MEDS: IBUPROFEN 600 MG TAB PO PRN ×2 (10:51→19:38)
[2016-12-30] MEDS ORDERED: MEASLES, MUMPS, RUBELLA VACCINE 0.5 ML VIAL SQ ONE (16:00)
[2016-12-30] MEDS ORDERED: DIPHTH/TETANUS/ACEL PERTUSSIS (BOOSTER) 0.5 ML VIAL/PFS IM ONE (16:00)
[2016-12-30] MEDS: DOCUSATE SODIUM 50 MG/SENNA 8.6 MG TAB PO PRN (19:39)
[2016-12-30] MEDS: NICOTINE 14 MG/24 HR PATCH T-DERMAL SCH (20:49)
[2016-12-30] MEDS: REMOVE OLD NICOTINE PATCH T-DERMAL SCH (20:49)
[2016-12-30 20:55] VITALS: BP 102/51; PULSE 88; RESP 20; TEMP 98.9
[2016-12-31 04:41] LABS: AUTOMATED NEUTROPHIL # 9.4 TH/MM3 (1.8-7.7); BASOPHIL % 0.2 % (0.0-2.0); EOSINOPHIL # 0.1 TH/MM3 (0-0.4); EOSINOPHIL % 0.5 % (0.0-4.0); LYMPH % 20.5 % (9.0-44.0); LYMPHOCYTE # 2.7 TH/MM3 (1.0-4.8); MEAN CORPUSCULAR HEMOGLOBIN 32.6 PG (27.0-34.0); MEAN CORPUSCULAR HGB CONC 34.7 % (32.0-36.0); MONO % 7.1 % (0.0-8.0); NEUT % 71.7 % (16.0-70.0); PLATELET COUNT 225 TH/MM3 (150-450); RED BLOOD COUNT 2.11 MIL/MM3 (4.00-5.30); RED CELL DISTRIBUTION WIDTH 13.3 % (11.6-17.2); WHITE BLOOD COUNT 13.2 TH/MM3 (4.0-11.0)
[2016-12-31 04:47] LABS: HEMO FLAGS DIFF FINAL
[2016-12-31 04:49] LABS: HEMATOCRIT 19.8 % (35.0-46.0)
[2016-12-31] MEDS: IBUPROFEN 600 MG TAB PO PRN ×3 (06:02→21:10)
[2016-12-31] MEDS: oxyCODONE/ACETAMINOPHEN 5 MG/325 MG TAB PO PRN ×4 (06:03→21:11)
[2016-12-31] MEDS: DOCUSATE SODIUM 50 MG/SENNA 8.6 MG TAB PO PRN ×2 (08:52→21:10)
[2016-12-31] MEDS: NALOXONE SL SCH ×2 (08:54→21:10)
[2016-12-31] MEDS: BUPRENORPHINE SL SCH ×2 (08:54→21:10)
--- NOTE | 2016-12-31 09:04 | HHI.OB ---
Subjective Remarks 36 year old female s/p emergent C/S due to placental abruption caused by cocaine use. 36/6 wks gestation, POD2. AFVSS. Patient reports she is feeling well. Bleeding is decreasing and pain is well-controlled. She is formula feeding and bonding with baby well. Ambulating without difficulties. She is tolerating a diet without nausea or vomiting. She has not had a bowel movement. She has not passed gas. Denies dizziness, lightheadedness, chest pain, dysuria, shortness of breath, or calf pain. (Tila Rodriguez MD R1) Objective Vitals/I&O Vital Signs Date Time Temp Pulse Resp B/P (MAP) Pulse Ox O2 Delivery O2 Flow Rate FiO2 12/30/16 20:55 98.9 88 20 102/51 (68) 12/30/16 20:38 18 12/30/16 20:38 18 (Tila Rodriguez MD R1) Result Diagram: 12/31/16 0415 12/29/16 1850 Objective Remarks GENERAL: Well-nourished, well-developed patient. CARDIOVASCULAR: Regular rate and rhythm without murmurs, gallops, or rubs. RESPIRATORY: Breath sounds equal bilaterally. No accessory muscle use. ABDOMEN/GI: Abdomen soft, non-tender, bowel sounds present. Incision: covered in pressure dressing, will check POD 3 Fundus: Firm, non-tender at umbilicus. GENITOURINARY: Light to moderate bleeding. EXTREMITIES: No cyanosis or edema, non-tender, without signs of DVT. Medications and IVs Current Medications Medications (Trade) Dose Ordered Sig/Maximus Route Start Time Stop Time Status Last Admin (NS Flush) 2 ml BID IV FLUSH 12/29/16 21:00 12/29/16 21:00 (NS Flush) 2 ml UNSCH PRN IV FLUSH 12/29/16 18:00 (Zofran Inj) 4 mg Q6H PRN IV PUSH 12/29/16 18:00 (fentaNYL INJ) 25 mcg Q3HR PRN IV PUSH 12/29/16 18:00 12/29/16 20:33 Patient Own Medication PT OWN MED: SUBOX... BID SL 12/29/16 21:00 12/31/16 08:54 (NS Flush) 2 ml UNSCH PRN IV FLUSH 12/29/16 22:45 (Mylicon Chew) 80 mg QID PRN PO 12/29/16 22:45 (Tylenol) 650 mg Q6H PRN PO 12/29/16 22:45 (Motrin) 600 mg Q6H PRN PO 12/29/16 22:45 12/31/16 06:02 (Percocet 5-325 Mg) 1 tab Q4H PRN PO 12/29/16 22:45 (Percocet 5-325 Mg) 2 tab Q4H PRN PO 12/29/16 22:45 12/31/16 06:03 (Ting-Colace) 2 tab Q12H PRN PO 12/29/16 22:45 12/31/16 08:52 (Ambien) 5 mg HS PRN PO 12/29/16 22:45 (Zofran Inj) 4 mg Q6H PRN IV PUSH 12/29/16 22:45 (Flu (Quadrivalent) Vaccine Inj) 0.5 ml ONCE ONCE IM 12/31/16 10:00 12/31/16 10:01 (Habitrol 14 Mg Patch.24 Hr) 1 patch DAILY@1999 T-DERMAL 12/30/16 20:00 12/30/16 20:49 Miscellaneous Information 1 DAILY@1999 T-DERMAL 12/30/16 20:00 12/30/16 20:49 (Tila Rodriguez MD R1) Assessment/Plan Assessment and Plan 36 yo female s/p emergent C/S due to placental abruption due to cocaine use , POD3 - AFVSS -H/H 6.9/19.8, patient is currently asymptomatic. Ferrous sulfate 325 mg BID. - Continue routine care - Percocet and Toradol for pain - Encourage OOB - Pelvic rest x 6 wks. Will need 1 week incision check. - Contraception: Undecided - Anticipate D/C on Tuesday (Tila Rodriguez MD R1) Attending Attestation The exam, history, and the medical decision-making described in the above note were completed with the assistance of the resident provider. I reviewed and agree with the findings presented. I attest that I had a [id number] encounter with the patient on the same day, and personally performed and documented my assessment and findings in the medical record. (Shamir Caldwell MD) Tila Rodriguez MD R1 Dec 31, 2016 09:04 Shamir Caldwell MD Dec 31, 2016 09:15
[2016-12-31] MEDS ORDERED: INFLUENZA VIRUS VACCINE (QUADRIVALENT) 0.5 ML SYR IM ONE (10:00)
[2016-12-31] MEDS: FERROUS SULFATE 325 MG (65 MG ELEMENTAL IRON) TAB PO SCH ×2 (11:45→21:10)
[2016-12-31] MEDS: REMOVE OLD NICOTINE PATCH T-DERMAL SCH (20:00)
[2016-12-31] MEDS: NICOTINE 14 MG/24 HR PATCH T-DERMAL SCH (20:12)
[2017-01-01] MEDS: IBUPROFEN 600 MG TAB PO PRN (03:38)
[2017-01-01] MEDS: oxyCODONE/ACETAMINOPHEN 5 MG/325 MG TAB PO PRN ×2 (03:38→08:55)
[2017-01-01 06:01] LABS: AUTOMATED NEUTROPHIL # 9.1 TH/MM3 (1.8-7.7); BASOPHIL # 0.1 TH/MM3 (0-0.2); BASOPHIL % 0.4 % (0.0-2.0); EOSINOPHIL # 0.2 TH/MM3 (0-0.4); EOSINOPHIL % 1.5 % (0.0-4.0); HEMATOCRIT 21.8 % (35.0-46.0); LYMPH % 21.1 % (9.0-44.0); LYMPHOCYTE # 2.7 TH/MM3 (1.0-4.8); MEAN CELL VOLUME 94.8 FL (80.0-100.0); MEAN CORPUSCULAR HEMOGLOBIN 31.9 PG (27.0-34.0); MEAN CORPUSCULAR HGB CONC 33.7 % (32.0-36.0); MONO % 5.7 % (0.0-8.0); NEUT % 71.3 % (16.0-70.0); PLATELET COUNT 320 TH/MM3 (150-450); RED CELL DISTRIBUTION WIDTH 13.5 % (11.6-17.2); WHITE BLOOD COUNT 12.7 TH/MM3 (4.0-11.0)
[2017-01-01 06:07] LABS: HEMO FLAGS AUTO DIFF
[2017-01-01 06:54] LABS: SCAN/DIFF AUTO DIFF CONFIRMED
[2017-01-01] MEDS ORDERED: IBUP-232 PO (08:44)
[2017-01-01] MEDS ORDERED: OXYC1TAB63 PO (08:44)
[2017-01-01] MEDS ORDERED: FERR325T20 PO (08:44)
--- NOTE | 2017-01-01 08:45 | HHI.DCPOC ---
Discharge Care Plan Diagnosis: (1) delivery delivered (2) Chronic hepatitis C during , antepartum Report Symptoms to Your Doctor -Temperature above 100.5 degrees -Redness, of incision or excessive or foul smelling drainage -Unusual pain or calf pain -Increased vaginal bleeding -Painful or difficulty urinating -Feelings of extreme sadness or anxiety after 2 weeks Goals to Promote Your Health * To prevent worsening of your condition and complications * To maintain your health at the optimal level Directions to Meet Your Goals Visit a physician in 1 week to check your scar Take your medications as prescribed Follow your dietary instruction Follow activity as directed Ensure plenty of rest for recovery Drink fluids for hydration Keep your appointments as scheduled Take your immunizations and boosters as scheduled If your symptoms worsen call your PCP, if no PCP go to Urgent Care Center or Emergency Room Smoking is Dangerous to Your Health. Avoid second hand smoke Call the 24-hour crisis hotline for domestic abuse at Altaf Chapman MD R2 Jan 01, 2017 08:45
[2017-01-01] MEDS: FERROUS SULFATE 325 MG (65 MG ELEMENTAL IRON) TAB PO SCH (08:55)
[2017-01-01] MEDS: BUPRENORPHINE SL SCH (08:56)
[2017-01-01] MEDS: NALOXONE SL SCH (08:56)
--- NOTE | 2017-01-01 08:59 | HHI.OB ---
Subjective Remarks 36 year old female s/p C/S at 37 wks gestation, POD 3. AFVSS. Patient reports she is feeling well. Bleeding is decreasing and pain is well- controlled. She is formula feeding. Ambulating without difficulties. She is tolerating a diet without nausea or vomiting. She has not had a bowel movement. She has passed gas. Had some mild chest pain this morning along with a cough that she's been happening for the last few days. Coughed up a little bit of mucus this morning, no blood. Denies shortness of breath, dysuria, calf pain. (Altaf Chapman MD R2) Remarks Patient seen and evaluated with resident under direct supervision, agree with assessment and plan. (Alek Rick MD) Objective Result Diagram: 01/01/17 0532 12/29/16 1850 Objective Remarks GENERAL: Well-nourished, well-developed patient. CARDIOVASCULAR: Regular rate and rhythm without murmurs, gallops, or rubs. RESPIRATORY: CTAB. No distress. No crackles or wheezes. No accessory muscle use. ABDOMEN/GI: Abdomen soft, non-tender, bowel sounds present. Incision: clean, dry, and intact with steri-strips in place Fundus: Firm, non-tender just below umbilicus. GENITOURINARY: Light bleeding. EXTREMITIES: No cyanosis or edema, non-tender, without signs of DVT. Medications and IVs Current Medications Medications (Trade) Dose Ordered Sig/Maximus Route Start Time Stop Time Status Last Admin (NS Flush) 2 ml BID IV FLUSH 12/29/16 21:00 12/29/16 21:00 (NS Flush) 2 ml UNSCH PRN IV FLUSH 12/29/16 18:00 (Zofran Inj) 4 mg Q6H PRN IV PUSH 12/29/16 18:00 (fentaNYL INJ) 25 mcg Q3HR PRN IV PUSH 12/29/16 18:00 12/29/16 20:33 Patient Own Medication PT OWN MED: SUBOX... BID SL 12/29/16 21:00 12/31/16 21:10 (NS Flush) 2 ml UNSCH PRN IV FLUSH 12/29/16 22:45 (Mylicon Chew) 80 mg QID PRN PO 12/29/16 22:45 (Tylenol) 650 mg Q6H PRN PO 12/29/16 22:45 (Motrin) 600 mg Q6H PRN PO 12/29/16 22:45 01/01/17 03:38 (Percocet 5-325 Mg) 1 tab Q4H PRN PO 12/29/16 22:45 01/01/17 03:38 (Percocet 5-325 Mg) 2 tab Q4H PRN PO 12/29/16 22:45 12/31/16 17:17 (Ting-Colace) 2 tab Q12H PRN PO 12/29/16 22:45 12/31/16 21:10 (Ambien) 5 mg HS PRN PO 12/29/16 22:45 (Zofran Inj) 4 mg Q6H PRN IV PUSH 12/29/16 22:45 (Habitrol 14 Mg Patch.24 Hr) 1 patch DAILY@1999 T-DERMAL 12/30/16 20:00 12/31/16 20:12 Miscellaneous Information 1 DAILY@1999 T-DERMAL 12/30/16 20:00 12/31/16 20:00 (Ferrous Sulfate) 325 mg BID PO 12/31/16 10:00 12/31/16 21:10 (Altaf Chapman MD R2) Assessment/Plan Assessment and Plan 36 yo female s/p emergent C/S due to placental abruption due to cocaine use , POD3 - AFVSS - Hgb 7.3, increased from 6.9 yesterday. Bleeding decreased. Continue ferrous sulfate 325 mg BID. - Continue routine care - Percocet and Toradol for pain - Encourage OOB - Pelvic rest x 6 wks. Will need 1 week incision check. - Contraception: Depo prior to discharge - Home today (Altaf Chapman MD R2) Attending Attestation Patient seen and evaluated with resident under direct supervision, agree with assessment and plan. (Alek Rick MD) Altaf Chapman MD R2 Jan 01, 2017 08:59 Alek Rick MD Jan 03, 2017 06:51
[2017-01-01] MEDS: SODIUM CHLORIDE 0.9% FLUSH 10 ML FLUSH IV FLUSH SCH (09:00)
[2017-01-01] MEDS ORDERED: medroxyPROGESTERone ACETATE SUSP 150 MG/ML SYRINGE IM ONE (10:00)
[2017-01-03 08:24] LABS: BATH SALTS (MDPV) UR NEG (NEG); ECSTASY (MDMA) UR NEG (NEG); GABAPENTIN UR NEG (NEG); HEROIN (6-ACETYLMORPHINE) UR NEG (NEG); HYDROMORPHONE U NEG (NEG); K2 SPICE UR NEG (NEG); OBMETHADONE UR NEG (NEG); PHENCYCLIDINE URINE NEG (NEG)
== END 2017-01-01 11:49 | disposition home or self-care (01) | DRG 765 ==
LOC: HOBED 14:31 → H2EB 17:49 → INTOOBSV 17:49 → OBSVTOIN 17:49 → H1EA 12-30 00:59
PROVIDERS: ADMIT Obstetrics & Gynecology Maternal & Fetal Medicine; ATTEND Obstetrics & Gynecology Maternal & Fetal Medicine
PROC: 10D00Z1 Extraction of Products of Conception, Low, Open Approach (ICD-10-PCS; principal; 2016-12-29)
DX: O60.14X0 Preterm labor third trimester with preterm delivery third trimester, not applicable or unspecified (principal); O45.8X3 Other premature separation of placenta, third trimester; O99.324 Drug use complicating childbirth; O98.42 Viral hepatitis complicating childbirth; O99.334 Smoking (tobacco) complicating childbirth; F17.210 Nicotine dependence, cigarettes, uncomplicated; F14.90 Cocaine use, unspecified, uncomplicated; B18.2 Chronic viral hepatitis C; Z3A.36 36 weeks gestation of pregnancy; Z37.0 Single live birth
CPT/HCPCS: 59025; 74000; 80053; 80307; 82805; 84112; 85025; 85384; 85610; 85730; 86850; 86900; 86901; 88307; 90715; 96372; G0481; J0330; J0690; J1885; J2175; J2270; J2370; J2405; J2550; J2590; J3010; J7120